=== PATIENT | male | born 1955 | race Caucasian/White ===

== ENCOUNTER → 2018-08-23 17:38 | Outpatient (CLI) | payer OTHER | END | disposition home or self-care (01) | LOC: D.LABREF 17:38 | DX: M17.12 Unilateral primary osteoarthritis, left knee (principal); Z11.8 Encounter for screening for other infectious and parasitic diseases ==

== ENCOUNTER 2018-09-30 10:21 | Outpatient (CLI) | payer OTHER ==
[~2018-09-30] VITALS: Ht 190.5 cm; Wt 83.6 kg
[~2018-09-30 10:21] MED LIST: ASPIRIN EC325 M1 PO; ATIVAN2 MG PO; CENTRUM MEN'S1 EACH PO; LOVASTATIN40 MG PO; OMEPRAZOLE40 MG PO; SYMBICORT 16010.2 GM INH; ULTRAM50 MG PO; VASOTEC10 MG PO; ZANAFLEX4 MG PO
[2018-09-30 11:28] VITALS: Ht 190.5 cm; Wt 83.6 kg
[2018-09-30 11:37] LABS: CALC OSMOLALITY 278 mosm/kg (275-300); CALCIUM 8.4 mg/dL (8.5-10.1); CARBON DIOXIDE 24.6 mmol/L (21.0-32.0); CHLORIDE - SERUM 98 mmol/L (98-107); GLUCOSE 146 mg/dL (74-106); POTASSIUM - SERUM 4.3 mmol/L (3.5-5.1); SODIUM 137 mmol/L (136-145); UREA NITROGEN 17 mg/dL (7-18); eGFR NON AFRICAN AMERICAN 80 mL/min (90-120)
[2018-09-30 11:38] LABS: APTT 30.9 SECONDS (22.8-39.4); INR 1.2 (0.85-1.17); PROTIME 14.6 SECONDS (11.6-15.0)
[2018-09-30 11:51] LABS: BASOPHILS 1.9 % (0-2); EOSINOPHILS 0.3 % (0-7); IMMATURE GRANULOCYTES 2.9 % (0-5); LYMPHOCYTES 42.5 % (15-50); MCH 30.5 pg (26.0-34.0); MCHC 32.4 g/dL (31.0-37.0); MONOCYTES 17.9 % (2-11); NEUTROPHILS 34.5 % (40-80); PLATELET COUNT 174 10x3/uL (130-400); RDW 23.5 % (11.5-14.5); WBC 3.7 10x3/uL (4.8-10.8)
[2018-09-30 12:03] LABS: HEMATOCRIT 18.8 % (42.0-54.0); HEMOGLOBIN 6.1 g/dL (13.5-17.5)
--- NOTE | 2018-09-30 15:22 | NUR ---
1315 PATIENTS PROCEDURE WAS CANCELLED DUE TO LOW HEMATOCRIT AND HGB PER SPECIALS. MAIK AMBROCIO, RN STATES THAT PT IS TO RECEIVE 2 UNITS OF BLOOD. 1330 TYPE AND CROSS BLOOD DRAW COMPLETED. LUNCH OFFERED TO PATIENT. 1410 PT APPETITE GOOD. ATE ALL OF FOOD ON REGULAR DIET TRAY. 1440 NOTIFIED THAT BLOOD IS READY. UPON ENTERING ROOM, PT VERBALIZES THAT HE IS WHEEZING AND BREATHS OUT HEAVY SO THAT WHEEZING IS AUDIBLE WITHOUT THE NEED OF A STETHASCOPE. EXPLAINED TO PATIENT THAT I WOULD NOTIFIED OF HIS WHEEZING.
--- NOTE | 2018-09-30 16:34 | NUR ---
1510 RESPIRATORY THERAPIST AT BEDSIDE. EXPIRATORY WHEEZING NOTED BILATERALLY. 1525 BREATHING TREATMENT COMPLETED. PT STATES THAT HIS BREATHING IS EASIER AFTER COUGHING UP SOME WHITE SPUTUM.
--- NOTE | 2018-09-30 18:30 | NUR ---
PATIENT TOLERATING BLOOD TRANSFUSION WITHOUT DIFFICULTY. PATIENT HAS NO RIDE HOME TONIGHT, EX- BROUGHT PATIENT TO FACILITY THIS MORNING FOR PROCEDURE AND WAS SUPPOSED TO COME BACK, THIS NURSE HAS CALLED EX- AND SHE STATES SHE THOUGHT PATIENT HAD SOMEONE ELSE TO TAKE HIM HOME AND SHE IS IN [place] AT THIS TIME AND CANNOT COME GET PATIENT. PATIENT STATES HIS BROTHER IS HIS EMERGENCY CONTACT AND HE LIVES OUT OF STATE, STATES HAS NO OTHER FAMILY OR FRIENDS IN TOWN. [employer]OVES [email or web address]
--- NOTE | 2018-09-30 19:30 | NUR ---
PATIENT DISCHARGED HOME VIA AMBULATORY TO TAX WITH VOUCHER FOR TAXI RIDE HOME. NO SIGNS OR SYMPTOMS OF TRANSFUSION REACTION. PATIENT POINTS TO BACK AND STATES "I'VE BEEN ITCHING BACK HERE BUT I'VE BEEN ITCHING THERE FOR THE PAST FEW DAYS." DRY FLAKY SKIN NOTED BUT NO RASH
== END 2018-09-30 19:30 | disposition home or self-care (01) ==
LOC: D.CT 10:21 → D.SP 10:21 → D.CT 13:00 → D.SP 19:30
PROVIDERS: Specialist
DX: D64.9 Anemia, unspecified (principal)

== ENCOUNTER 2018-10-04 10:16 | Outpatient (CLI) | payer MEDICARE ==
[~2018-10-04] VITALS: Ht 190.5 cm; Wt 86.4 kg
[2018-10-04 11:03] LABS: ANION GAP 15.3 mmol/L (8-16); CALCIUM 9.4 mg/dL (8.5-10.1); CREATININE - SERUM 1.1 mg/dL (0.6-1.3); POTASSIUM - SERUM 4.3 mmol/L (3.5-5.1)
[2018-10-04 11:04] LABS: INR 1.2 (0.85-1.17); PROTIME 14.7 SECONDS (11.6-15.0)
[2018-10-04 11:27] LABS: BASOPHILS 2.4 % (0-2); EOSINOPHILS 0.3 % (0-7); HEMOGLOBIN 8.1 g/dL (13.5-17.5); IMMATURE GRANULOCYTES 1.1 % (0-5); LYMPHOCYTES 37.8 % (15-50); MCH 30.5 pg (26.0-34.0); MCHC 32.4 g/dL (31.0-37.0); MONOCYTES 4.5 % (2-11); NEUTROPHILS 53.9 % (40-80); PLATELET COUNT 152 10x3/uL (130-400); RBC 2.66 10x6/uL (4.20-6.10); RDW 20.4 % (11.5-14.5); WBC 3.8 10x3/uL (4.8-10.8)
--- NOTE | 2018-10-04 11:36 | NUR ---
1125 HCT AND HGB CALLED TO MAIK AMBROCIO RN. [facility] OK TO PROCEED.
[2018-10-04 12:20] VITALS: BP 117/67; Ht 190.5 cm; Wt 86.4 kg
--- NOTE | 2018-10-04 17:35 | NUR ---
6271 SEE POST PROCEDURE CHECKLIST FOR VITAL SIGN TRENDS.
== END 2018-10-04 16:40 | disposition home or self-care (01) ==
LOC: D.OPS 10:16 → D.CT 13:00 → D.OPS 16:40
PROVIDERS: Radiology Diagnostic Radiology
DX: D64.9 Anemia, unspecified (principal); Z01.812 Encounter for preprocedural laboratory examination

== ENCOUNTER 2018-10-17 09:34 | Outpatient (CLI) | payer MEDICARE ==
[~2018-10-17] VITALS: Ht 190.5 cm; Wt 79.5 kg
[2018-10-17 10:16] VITALS: BP 92/61; Ht 190.5 cm; Wt 79.5 kg
--- NOTE | 2018-10-17 15:50 | NUR ---
1030 REG DIET SERVED. AWAITING ON BLOOD TO BECOME READY 1130 THERE IS A PROBLEM GETTING BLOOD READY PT AWARE. 1350 BLOOD INITIATED AT 50/CC/HR LUNCH SERVED 1420 BLOOD RATE INCREASED TO 200/CC/HR. 1530 BLOOD COMPLETED LINE BEING FLUSHED WITH NS. PT VOIDS 400CC IN URINAL. 1540 LASIX 20MG IV GIVEN 1548 2ND BLOOD CHECKED AT BEDSIDE BY THIS NURSE AND ESTEPHANIA GUEVARA INITIATED AT 50/CC/HR CALL LIGHT AT BEDSIDE.
--- NOTE | 2018-10-17 18:16 | NUR ---
1715 BLOOD COMPLETED LINE BEING FLUSHED WITH NS 1800 IV DC'D WITH CATH INTACT PT VOIDS 900CC DENIED PROBLEMS WITH TRANSFUSION DC INSTS REVIEWED RELEASED IN WC.
== END 2018-10-17 18:00 | disposition home or self-care (01) ==
LOC: D.OPS 09:34
PROVIDERS: ATTEND Internal Medicine Hematology & Oncology
DX: D64.9 Anemia, unspecified (principal); D46.Z Other myelodysplastic syndromes

== ENCOUNTER 2018-10-31 12:15 | Outpatient (CLI) | payer MEDICARE ==
[~2018-10-31] VITALS: Ht 190.5 cm; Wt 86.4 kg
[~2018-10-31 12:15] MED LIST changes: +TRAZODONE HCL150 MG PO
[2018-10-31 15:34] VITALS: BP 122/76; Ht 190.5 cm; Wt 86.4 kg
--- NOTE | 2018-10-31 17:34 | NUR ---
1600 REPORT FROM MYKE FERNANDEZ RN. PT'S BLOOD INFUSING LT FOREARM AT 200/CC/HR, DENIES PROBLEMS, RATE INCREASED TO 250/CC/HR. URINAL PROVIDED. 1700 VOIDED 200CC [place] URINE IN URINAL. 1ST UNIT BLOOD HAS COMPLETED, LINE BEING FLUSHED WITH NS. REG DIET HAS BEEN ORDERED. 1720 2ND UNIT BLOOD CHECKED AT BEDSIDE BY THIS NURSE AND PAMELA KNIGHT RN, INITIATED AT 50/CC/HR. 1730 REG. DIET SERVED. SITTING ON SIDE OF BED TO EAT. 1740 NO PROBLEMS WITH TRANSFUSION, RATE INCREASED TO 250/CC/HR, PT. CONTINUES TO EAT.
--- NOTE | 2018-10-31 18:28 | NUR ---
1814 DENIES PROBLEMS, ATE 100% SUPPER. BLOOD INFUSING WELL, IV SITE PATENT.
--- NOTE | 2018-10-31 19:30 | NUR ---
1930 DENIES PROBLEMS, IV DC'D WITH CATH INTACT. PT. VOIDS RELEASED IN WC.
== END 2018-10-31 19:38 | disposition home or self-care (01) ==
LOC: D.OPS 12:15
PROVIDERS: ATTEND Internal Medicine Hematology & Oncology
DX: D46.1 Refractory anemia with ring sideroblasts (principal)